=== PATIENT | female | born 1975 | race Asian ===

== ENCOUNTER 2024-08-08 09:00 | Emergency (ER) | payer OTHER ==
[~2024-08-08] VITALS: Ht 152.4 cm; Wt 54.0 kg
[2024-08-08 09:03] VITALS: O2SAT 100
[2024-08-08] MEDS: HYDROCODONE/ACETAMINOPHEN 10/325MG TABLET PO ONE (09:46)
[2024-08-08 09:52] LABS: BASOPHILS % 0.7 % (0.0-2.0); EOSINOPHILS % 1.5 % (0.0-5.0); HEMATOCRIT. 40.8 % (36.0-48.0); HEMOGLOBIN. 13.4 g/dL (12.0-16.0); LYMPHOCYTES % 14.1 % (20.0-50.0); MEAN CORPUSCULAR HEMOGLOBIN 28.2 pg (28.0-32.0); MEAN CORPUSCULAR HGB CONC 32.8 g/dL (31.0-37.0); MEAN CORPUSCULAR VOLUME 85.9 fL (81.0-99.0); MEAN PLATELET VOLUME 7.7 fl (7.4-10.4); MONOCYTES % 6.7 % (2.0-8.0); PLATELET 233 x1000/uL (130-400); RED BLOOD CELL COUNT 4.75 mill/uL (4.2-5.4); RED CELL DISTRIBUTION WIDTH 13.8 % (11.6-14.6); WHITE BLOOD COUNT 4.5 x1000/uL (4.5-11.0)
[2024-08-08 09:59] LABS: CHLORIDE 105 mEq/L (98-107); POTASSIUM 3.3 mEq/L (3.5-5.1); SODIUM 138 mEq/L (136-145)
[2024-08-08 10:00] LABS: CALCIUM 9.6 mg/dL (8.7-10.4); CARBON DIOXIDE 28 mEq/L (21-32)
[2024-08-08 10:05] LABS: CREATININE 0.9 mg/dL (0.6-1.0); GLUCOSE 105 mg/dL (70-105); UREA NITROGEN BLOOD 14 mg/dL (9-23)
[2024-08-08 10:06] LABS: TROPONIN I HIGH SENSITIVITY 6 ng/L (3.0-34)
[2024-08-08] MEDS: POTASSIUM CHLORIDE 20MEQ TABLET SR PO NR (11:16)
[2024-08-08 11:17] VITALS: BP 161/81; PULSE 64; RESP 15; TEMP 36.89184; O2SAT 99
[2024-08-08] MEDS ORDERED: LORA-249 MT (13:29)
== END 2024-08-08 11:25 | disposition home or self-care (01) ==
LOC: ER 10:39
DX: I10 Essential (primary) hypertension (principal); F41.9 Anxiety disorder, unspecified; R51.9 Headache, unspecified
CPT/HCPCS: 36415; 71045; 80048; 84484; 85025; 99284

== ENCOUNTER 2024-08-12 15:18 | Emergency (ER) | payer OTHER ==
[~2024-08-12] VITALS: Ht 162.6 cm; Wt 57.0 kg
[~2024-08-12 15:18] MED LIST: LORA-249 MT
[2024-08-12 15:22] VITALS: O2SAT 98
[2024-08-12 16:51] VITALS: BP 133/70; PULSE 79; RESP 18; TEMP 37.11408; O2SAT 98
== END 2024-08-12 16:52 | disposition home or self-care (01) ==
LOC: ER 15:18
DX: Z76.0 Encounter for issue of repeat prescription (principal)
CPT/HCPCS: 99281